=== PATIENT | female | born 1975 | race Caucasian/White ===

== ENCOUNTER 2020-11-15 18:30 | Emergency (ER) | payer OTHER ==
[~2020-11-15] VITALS: Ht 157.5 cm; Wt 90.7 kg
[2020-11-15] MEDS ORDERED: PROTONIX40 M2 PO (18:43)
[2020-11-15] MEDS ORDERED: HYDROXYZINE HCL10 M2 PO (18:43)
[2020-11-15 19:27] LABS: URINE BILIRUBIN NEGATIVE (Negative); URINE BLOOD NEGATIVE (Negative); URINE CLARITY CLEAR; URINE GLUCOSE-RANDOM NEGATIVE (Negative); URINE KETONES NEGATIVE (Negative); URINE LEUKOCYTES-REFLEX 1+ (Negative); URINE NITRITE-REFLEX NEGATIVE (Negative); URINE PROTEIN NEGATIVE (Negative); URINE SPECIFIC GRAVITY <= 1.005 (1.005-1.030); URINE UROBILINOGEN 0.2 E.U./dl (0.2-1.0)
[2020-11-15 19:29] LABS: URINE COLOR CLEAR
[2020-11-15 19:35] LABS: ABSOLUTE EOSINOPHILS 0.2 thou/uL (0.0-0.7); ABSOLUTE LYMPHOCYTES 1.6 thou/uL (0.8-5.3); ABSOLUTE MONOCYTES 0.5 thou/uL (0.0-1.2); ABSOLUTE NEUTROPHILS 7.5 thou/uL (1.6-8.1); BASOPHILS 0.4 %; EOSINOPHILS 2.3 %; HEMATOCRIT 38.6 % (37.0-47.0); HEMOGLOBIN 12.7 gm/dL (12.0-15.0); LYMPHOCYTES 16.4 %; MCH 28.2 pg (26.0-34.0); MCV 85.6 fL (80.0-100.0); MONOCYTES 5.1 %; MPV 8.3 fl. (7.2-11.1); NUCLEATED RBCS 0 /100WBC; PLATELET COUNT* 258 thou/uL (150-400); POLYS 75.8 %; RBC 4.51 mil/uL (4.20-5.00); RDW-CV 14.3 % (10.5-14.5); WBC 9.9 thou/uL (4.0-11.0)
[2020-11-15 19:42] LABS: SQUAMOUS 0-3 Few /LPF (0-3)
[2020-11-15 19:42] LABS: CALCIUM 9.5 mg/dL (8.5-10.1); CREATININE 0.7 mg/dL (0.6-1.3); POTASSIUM 3.8 mmol/L (3.5-5.1)
[2020-11-15 19:43] LABS: CASTS None Seen /LPF (None Seen); CRYSTALS None Seen /LPF (None Seen); MUCUS None Seen strn/LPF (None Seen); URINE RBC None Seen /HPF (0-2); URINE WBC-REFLEX 0-5 Rare /HPF (0-5)
[2020-11-15 19:46] LABS: ALBUMIN 3.4 g/dL (3.4-5.0); TOTAL BILIRUBIN 0.3 mg/dL (<0.1-1.0); TOTAL PROTEIN 7.7 g/dL (6.4-8.2)
[2020-11-15] MEDS ORDERED: XANAX 0.25 MG0.25 MG PO (19:50)
[2020-11-15 20:02] VITALS: BP 113/69
--- NOTE | 2020-11-16 10:15 | EKG ---
[place] [address] ELECTROCARDIOGRAM REPORT Name: WALKER NERI Room: [facility]#: [id number] Admission: 11/15/20 Attend Phys: Discharge: 11/15/20 Date of : 71 Date of Service: 11/15/201938 Report #: [id number] THIS REPORT FOR: //name// [facility] ED Test Date: 2020-11-15 Test Time: 19:39:59 Pat Name: WALKER NERI Department: Room: Gender: F Tester Wafer Substrate: YASIR : 1975 Requested By: Rachel Honeycutt Order Number: [id number] MD: Grzegorz Barney Measurements Intervals [place] Rate: 78 P: 49 WY: 132 QRS: -18 QRSD: 83 T: -8 QT: 403 QTc: 460 Interpretive Statements Sinus rhythm LVH by voltage Borderline T abnormalities, inferior leads No previous ECG available for comparison Electronically Signed On 11-16-2020 10:15:16 CDT by Grzegorz Barney [email or web address] <ELECTRONICALLY SIGNED> By: Grzegorz Barney MD, FAC 11/16/20 [id number] 38 Grzegorz Barney MD, [facility] /EPI
== END 2020-11-15 20:02 | disposition home or self-care (01) ==
LOC: M.ERS 18:30
PROVIDERS: Physician Assistant
DX: F41.0 Panic disorder [episodic paroxysmal anxiety] (principal); R20.0 Anesthesia of skin; R11.2 Nausea with vomiting, unspecified; R42 Dizziness and giddiness; R10.84 Generalized abdominal pain; K21.9 Gastro-esophageal reflux disease without esophagitis; Z90.49 Acquired absence of other specified parts of digestive tract; Z98.890 Other specified postprocedural states; Z79.899 Other long term (current) drug therapy